=== PATIENT | female | born 1985 | race American Indian/Alaskan Native ===

== ENCOUNTER 2019-07-08 14:49 | Emergency (ER) | payer OTHER ==
[2019-07-08 15:33] VITALS: BP 117/75
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
== END 2019-07-08 16:24 | disposition home or self-care (01) ==
LOC: ED 14:49
DX: M54.9 Dorsalgia, unspecified (principal)
CPT/HCPCS: 99281